=== PATIENT | male | born 1985 | race Caucasian/White ===

== ENCOUNTER 2016-06-30 05:23 | Emergency (ER) | payer SELFPAY ==
[~2016-06-30] VITALS: Ht 172.7 cm; Wt 77.1 kg
[2016-06-30 05:23] VITALS: BP_SYST 149
--- NOTE | 2016-06-30 05:23 | NUR ---
Patient to ER bed 3 to gown for evaluation. Side rails up.
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
--- NOTE | 2016-06-30 05:38 | NUR ---
ER at bedside examining patient.
[2016-06-30 05:49] VITALS: BP_SYST 149
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
== END 2016-06-30 05:50 ==
LOC: SED 05:23
DX: Z02.89 Encounter for other administrative examinations (principal)
CPT/HCPCS: 99283